=== PATIENT | female | born 1990 | race Two or more races ===

== ENCOUNTER 2023-05-16 11:47 | Outpatient (REF) | payer MEDICAID, SELFPAY ==
[2023-05-16 14:29] LABS: MANUAL DIFF FLAG NO
[2023-05-16 14:41] LABS: Basophils Absolute Auto 0.1 X10*3/uL (0.0-0.2); Basophils Percent Auto 0.9 % (0-2); Eosinophils Percent Auto 0.4 % (0-4); Hematocrit 39.8 % (37.0-47.0); Hemoglobin 13.5 g/dl (12.0-16.0); Imm Gran Abs Auto 0.01 X10*3/uL (0.00-0.03); Imm Gran Pct Auto 0.1 % (0.0-0.4); Lymphocytes Absolute Auto 2.1 X10*3/uL (1.2-4.9); Lymphocytes Percent Auto 31.7 % (20-40); Mean Corpuscular HGB Conc 33.9 g/dl (31.0-35.0); Mean Corpuscular Hemoglobin 31.7 pg (27.0-33.0); Mean Corpuscular Volume 93.4 fL (80.0-98.0); Mean Platelet Volume 10.5 fL (9.4-12.3); Monocytes Absolute Auto 0.6 X10*3/uL (0.1-1.2); Monocytes Percent Auto 8.8 % (2-11); Neutrophils Absolute Auto 3.9 x10*3/uL (2.0-8.3); Neutrophils Percent Auto 58.1 % (45-73); Platelet Count 392 X10*3/uL (160-400); Red Blood Count 4.26 X10*6/uL (4.20-5.50); Red Cell Distribution Width 11.9 % (11.0-16.0); White Blood Count 6.7 X10*3/uL (4.8-10.8)
[2023-05-16 15:36] LABS: Estimated Average Glucose 94 mg/dL; Hemoglobin A1c % 4.9 % (<6.0)
[2023-05-16 15:53] LABS: Alanine Aminotransferase 13 U/L (0-31); Albumin Level 4.4 g/dL (3.5-5.0); Alkaline Phosphatase 48 U/L (39-117); Anion Gap 12 (12-20); Aspartate Amino Transferase 16 U/L (5-31); Bilirubin Total 0.6 mg/dL (0.0-1.0); Blood Urea Nitrogen 9 mg/dL (9-16); Calcium 9.3 mg/dL (8.4-10.2); Carbon Dioxide 26 mmol/L (22-29); Chloride 107 mmol/L (96-108); Cholesterol 174 mg/dL (<200); Estimated Glomerular Filt Rate > 60; Glucose Fasting 83 mg/dL (60-99); HDL Cholesterol 49 mg/dL (>40); LDL Cholesterol Calculated 111 mg/dL (<100); Potassium 3.8 mmol/L (3.3-5.1); Sodium 141 mmol/L (135-145); TSH reflex Free T4 0.53 uIU/mL (0.32-4.0); Total Protein 7.5 g/dL (6.5-8.0); Triglycerides 74 mg/dL (<150)
== END 2023-05-16 11:48 | disposition home or self-care (01) ==
LOC: HO.CHCLDS 11:47
PROVIDERS: Visit Provider Internal Medicine
DX: Z00.00 Encounter for general adult medical examination without abnormal findings (principal)
CPT/HCPCS: 36415; 80053; 80061; 83036; 84443; 85025

== ENCOUNTER 2023-09-09 | Outpatient (REF) | payer MEDICAID, SELFPAY ==
[2023-09-15 20:09] LABS: HPV mRNA E6/E7 rflx Not Detected (Not Detected)
== END 2023-09-09 00:01 | disposition home or self-care (01) ==
LOC: HO.HHCLNP
PROVIDERS: Visit Provider Advanced Practice Midwife
DX: Z12.4 Encounter for screening for malignant neoplasm of cervix (principal)
CPT/HCPCS: 87624; 88142

== ENCOUNTER 2024-09-30 18:23 | Outpatient (REF) | payer MEDICAID, SELFPAY ==
--- OUTSIDE RECORDS SUMMARY | 2024-09-30 19:49 | XMS_ITS | Encounter Summary ---
Author Organization [employer] Address [address] [facility] 7 [place] [address] Care Team Providers Care Buyer Agent Name Role Phone Byron Rey MD Primary Care Prov ider Reason for Visit * Reason Onset Date Comments Med Change Request 02/27/2024 Encounter Details Date Type Department Care Team ([facility] st Contact Info) Description 02/27/2024 Telephone [facility] MEDICINE [address] [place] [address] Byron Rey MD [address] [place] [address] Med Change Request Social History Tobacco Use Types Packs/Day Years Used Date Smoking Tobacco: Never Smokeless Tobacco: Never Alcohol Use Standard Drinks/Week Comments Never 0 (1 standard drink = 0.6 oz pur e alcohol) Depression Answer Date Recorded Patient Health Questionnaire-9 Score 0 01/02/2023 Housing Stability Answer Date Recorded What is your housing situation today? I have yuri bonds 06/02/[address] you li ve. Do you have problems with any of the following? None of the above 06/02/2023 Food Insecurity Answer Date Recorded Within the past 12 months, y ou worried that your food would run out before you got money to buy more: Never True 06/02/2023 Within the past 12 months,th e food you bought just didn't last and you didn't have enough money to get more: Never True Transportation Answer Date Recorded In the past 12 months, has l ack of transportation kept you from medical appts, meetings, work or from getting things needed for daily living? No 06/02/2023 Utilities Answer Date Recorded In the past 12 months, has t he electric, gas, oil or water company threatened to shut off services in your home? No 06/02/2023 Depression Answer Date Recorded Patient Health Questionnaire-2 Score 0 01/02/2023 Comments No Sex and Gender Information Value Date Recorded Sex Assigned at Female 06/03/2022 10:32 AM EDT Legal Sex Female 10:32 AM EDT Gender Identity Female 06/03/2022 10:32 AM EDT Sexual Orientation Straight 06/03/2022 10 :32 AM EDT documented as of this encounter Miscellaneous Notes * Telephone Encounter - Anabel Varghese RN - 03/01/2024 9:38 AM EDT Telephone call returned to patient in regards to below message. Patient stating that medication hasnot helped with her pain. She states that she has only used motrin prior and this was the medication she started for her back pain. Patient stating she takes medication once a day when she feel pain as that is that PCP told her to do. Patient is wondering if there is a different medication or if the dosage could be higher so she can have pain relief. Advised patient will send message along to provider. Patient verbalized understanding and denied having any further questions or concerns at this time. * Telephone Encounter - Arcenio Padron - 02/27/2024 2:46 PM EDT Tc from patient requesting a change from the medication meloxicam (Mobic) 15 MG tablet states this medication has no effect and would like something else documented in this encounter Plan of Treatment Not on file documented as of this encounter Visit Diagnoses Not on filedocumented in this encounter Additional Health Concerns Assessment Noted Time PHQ-9 Depression Total Score: 0 01/03/20 23 3:16 PM EDT documented as of this encounter Care Teams Buyer Agent Relationship Specialty Start Date End Date Byron Rey MD [address] [place] [id number] PCP - General Internal Medicine 07/25/20 documented as of this encounter
--- OUTSIDE RECORDS SUMMARY | 2024-09-30 19:49 | XMS_ITS | Encounter Summary ---
Author Organization [employer] Address [address] [facility] 7 [place] [address] Care Team Providers Care Pole Peeler Name Role Phone Byron Rey MD Primary Care Prov ider Reason for Visit * Reason Onset Date Comments Appointment Request 07/04/2023 Encounter Details Date Type Department Care Team ([facility] st Contact Info) Description 07/04/2023 Telephone [facility] MEDICINE [address] [place] [address] Byron Rey MD [address] [place] [address] Appointment Request Social History Tobacco Use Types Packs/Day [...] encounter Miscellaneous Notes * Telephone Encounter - Stephie Denis RN - 07/04/2023 11:49 AM EST Returned call to pt regarding message below. NV scheduled for 07/14/23. Pt agrees with plan. * Telephone Encounter - Pat Andrade - 07/04/2023 11:31 AM EST Tc from pt requesting a Depo appt. documented in this encounter Plan of Treatment Not on file documented as of this encounter Visit Diagnoses Not on filedocumented in this encounter Additional Health Concerns Assessment Noted Time PHQ-9 Depression Total Score: 0 01/03/20 23 3:16 PM EDT documented as of this encounter Care Teams Pole Peeler Relationship Specialty Start Date End Date Byron Rey MD [address] [place] [id number] PCP - General Internal Medicine 07/25/20 documented as of this encounter
--- OUTSIDE RECORDS SUMMARY | 2024-09-30 19:49 | XMS_ITS | Clinical Summary ---
Author Organization [facility] it Address [address] [place] [address] Care Team Providers Care Nuts And Bolts Assembler Name Role Phone Unavailable Primary Care Provider Unavailabl e Social History Tobacco Use Types Packs/Day Years Used Date Smoking Tobacco: Never Assessed Comments Unknown Sex and Gender Information Value Date Recorded Sex Assigned at Not on file Legal Sex Female 4:29 AM EST Gender Identity Not on file Sexual Orientation Not on file Plan of Treatment Health Maintenance Due Date Last Done Comments DTaP,Tdap,and Td Vaccines (1 - Tdap) 2010 Hepatitis B Vaccines (1 of 3 - 19+ 3-dose series) 2010 Cervical Cancer Screening: P ap Smear 2012 Depression Screening 07/07/2022 HIV Screening 07/07/2022 Hepatitis C Screening 07/07/2022 Social Influencers of Health Screening 07/07/2022 COVID-19 Vaccine ( - 2023-2 5 season) 2024 Influenza Vaccine (#1) 2024 HIB Vaccines Aged Out No longer eligi ble based on patient's age to complete this topic HPV Vaccines Aged Out No longer eligi ble based on patient's age to complete this topic Hepatitis A Vaccines Aged Out No long er eligible based on patient's age to complete this topic IPV Vaccines Aged Out No longer eligi ble based on patient's age to complete this topic MMR Vaccines Aged Out No longer eligi ble based on patient's age to complete this topic Meningococcal ACWY Vaccine Aged Out N o longer eligible based on patient's age to complete this topic Meningococcal B Vacine Aged Out No lo nger eligible based on patient's age to complete this topic Pneumococcal Vaccine: Pediat rics (0 to 5 Years) and At-Risk Patients (6 to 64 Years) Aged Out No longer eligible b ased on patient's age to complete this topic RSV Immunization Patients Un los 20 months Aged Out No longer eligible b ased on patient's age to complete this topic Varicella Vaccines Aged Out No longer eligible based on patient's age to complete this topic
--- OUTSIDE RECORDS SUMMARY | 2024-09-30 19:49 | XMS_ITS | Encounter Summary ---
Author Organization [employer] Address [address] [facility] [address] 7[address] h Floor [address] Care Team Providers Care Chairman President And Chief Executive Officer Name Role Phone Byron Rey MD Primary Care Prov ider Encounter Details Date Type Department Care Team (Latest Contact Info) Description 09/30/2024 Travel Social History Tobacco Use Types Packs/Day Years [...] AM EDT documented as of this encounter Plan of Treatment Not on file documented as of this encounter Visit Diagnoses Not on filedocumented in this encounter Additional Health Concerns Assessment Noted Time PHQ-9 Depression Total Score: 0 01/03/20 23 3:16 PM EDT documented as of this encounter Care Teams Chairman President And Chief Executive Officer Relationship Specialty Start Date End Date Byron Rey MD [address] [place] [id number] PCP - General Internal Medicine 07/25/20 documented as of this encounter
--- OUTSIDE RECORDS SUMMARY | 2024-09-30 19:49 | XMS_ITS | Clinical Summary ---
Author Organization [employer] Address [address] [place] [address] 7t [place] [address] Care Team Providers Care Lcsw Name Role Phone Byron Rey MD Primary Care Prov ider Allergies Active Allergy Reactions Criticality Noted Date Comments Bacitracin-Polymyxin B Rash Low 04/12/2024 Diphenhydramine Anxiety,Palpitations Low 04/04/2020 Other reaction(s): Hives / Skin Rash Medications Blood Pressure kit 1 kit in the morning. 1 kit 08/07/2023 Active albuterol 108 (90 Base) MCG/ACT inhalerIndication s:Mild intermittent asthma with acute exacerbation Inhale 1 puff every 4 (four) hours if needed for wheezing. 18 g 11/24/2023 11/24/19 25 Active drospirenone-ethi nyl estradiol-levomef olate calcium (Beyaz) 3-0.02-0.451 MG Take 1 tablet by mouth Once per day. 28 tablet 11 02/23/2024 Active meloxicam (Mobic) 15 MG tablet TAKE 1 TABLET BY MOUTH EVERY DAY 30 tablet 1 05/20/2024 Active Active Problems Problem Noted Date Diagnosed Date Abnormal cervical Papanicolaou smear 04/12/2024 Overview (04/12/2024): po planned Elevated blood pressure reading 08/07/2023 Assessment & Plan (10/06/2023 2:41 PM EST): Blood pressure results have maintained stable, less than 140/90, reinforced low sodium diet and exercise as tolerated and keep bp log Assessment & Plan (08/07/2023 12:42 PM EST): Patient found on recent office visit with elevated blood pressure, she was asymptomatic, has family hx of hypertension, will provide bp kit, follow up in 1 month, target <140/90, encouraged low sodium diet and exercise as tolerated Mid back pain 04/24/2023 Assessment & Plan (03/24/2024 3:02 PM EDT): Pain not improving with oral meloxicam, she has tried home remedies, exercises, heaat/cold, told to call back ortho last seen on 06/2023, will prescribe prednisone for 5 days, continue with meloxicam Assessment & Plan (02/17/2024 2:52 PM EDT): Pain comes and goes, she saw back specialist, had a MRI but did not quilified for steroid injections, will prescribe meloxicam to be taken as needed, told to continue home pt exercises, call back if worsening Assessment & Plan (05/17/2023 12:27 PM EDT): Controlled with intermittent OTC meds, continue stretching and exercise as tolerated Assessment & Plan (04/24/2023 10:55 AM EDT): Chronic thoracic back pain that radiate to her chest, no recent trauma, no heavy lifting, she has tried PT and home remedies, that improves the pain slightly and for a short term, requesting ortho evaluation, will place referral Encounter for initial prescr iption of injectable contraceptive 04/24/2023 Assessment & Plan (02/17/2024 2:52 PM EDT): Patient prefers to try oral pill contraceptive, will place order Assessment & Plan (04/24/2023 10:59 AM EDT): Wants to restart depo injections, will send task to nursing to schedule appointment Migraine without aura and wi thout status migrainosus, not intractable 01/02/2023 Assessment & Plan (05/17/2023 12:27 PM EDT): Controlled with Nsaids as needed, reinforce lifestyle modifications Assessment & Plan (01/02/2023 4:09 PM EDT): Will order sumatriptan and naproxen, reviewed lifestyle modifications, call back if not improving Acne 09/20/2021 Breast tenderness 09/20/2021 Resolved Problems Problem Noted Date Diagnosed Date Resolved Date Encounter for care of first 04/12/2024 09/30/2024 Encounters Date Type Department Care Team Description 09/30/2024 1:00 PM EST Office Visit [facility] [address] [place] [address] Lea Tucker CNM Dysmenorrhea (Primary Dx); Vaginal discharge 09/30/2024 Travel 07/23/2024 Travel from Last 3 Months Immunizations Name Administration Dates Next Due DTaP 12/07/2008 Influenza injectable quadriv alent preservative free 05/16/2023,08/22/2020,05/06/2019 Influenza, IIV3, injectable 10/17/2014 MMR 07/11/1992 Tdap 05/16/2023,01/17/2015 Social History Tobacco Use Types Packs/Day Years Used Date Smoking Tobacco: Never Smokeless Tobacco: Never Tobacco Cessation:Counseling Given: Not Answered Alcohol Use Standard Drinks/Week Comments Never 0 [...] Orientation Straight 06/03/2022 10 :32 AM EDT Last Filed Vital Signs Vital Sign Reading Time Taken Comments Blood Pressure 119/81 09/30/2024 1:25 PM EST Pulse 70 09/30/2024 1:25 PM EST Temperature 37 ??C (98.6 ??F) 09/30/2024 1:25 PM EST Respiratory Rate 20 09/30/2024 1:25 PM EST Oxygen Saturation 98% 09/30/2024 1:25 PM EST Inhaled Oxygen Concentration - - Weight 64.1 kg (141 lb 6.4 oz) 09/30/2024 1:25 P M EST Height 154.9 cm (5' 1 ) 09/30/2024 1:25 PM EST Body Mass Index 26.72 09/30/2024 1:25 PM EST Plan of Treatment Health Maintenance Due Date Last Done Comments Alcohol/Substance Use Screening 2003 Hepatitis B Vaccines (1 of 3 - 19+ 3-dose series) 2010 Pneumococcal Vaccine: Pediatrics (0 to 5 Years) and At-Risk Patients (6 to 49) Years) (1 of 2 - PCV) 2010 Depression Screening 01/03/2024 01/02/2023, 01/03/20 23 SDOH Screening 01/03/2024 01/02/2023 COVID-19 Vaccine (2023- season) 2024 06/12/2021, 10/07/2020, 09/16/2020 Influenza Vaccine (#1) 2024 , 08/22/2020, 05/06/2019, Additional history exists Family Planning (PISQ) 09/30/2025 09/30/2024 Tobacco Screening 09/30/2025 09/30/2024 Cervical Cancer Screening 09/09/2028 HPV/Cotest 09/09/2028 09/09/2023 Pap Smear 09/09/2028 09/09/2023, 08/22/2020 DTaP/Tdap/Td Vaccines (4 - Td or Tdap) 05/16/2033 05/16/2023, 01/17/2015, 12/07/2008 Zoster Vaccines (1 of 2) 2041 RSV Patients and Patients Aged 60 years or older (1 - 1-dose 75+ series) 2066 HIV Screening Completed 05/28/2021, 05/05, 07/19/2020 Hepatitis C Screening Completed 05/28/2021 HIB Vaccines Aged Out No longer eligi [...] patient's age to complete this topic Meningococcal Vaccine Aged Out No kelly clovis eligible based on patient's age to complete this topic RSV under 20 months Aged Out No longe r eligible based on patient's age to complete this topic Rotavirus Vaccines Aged Out No longer eligible based on patient's age to complete this topic Procedures Procedure Name Priority Date/Time Associated Diagnosis Comments HPV MRNA E6/E7 REFLEX TO HPV 16, 18/45 Routine 09/09/2023 1:22 PM EST PAP SMEAR Routine 09/09/2023 1:22 PM EST Cervical cancer screening ZZZ HISTORICAL HEPATITIS C AB W/REFL TO HCV RNA, QN, PCR Routine 05/28/2021 10:03 AM EDT HIV 1/2 ANTIGEN/ANTIBODY, FOURTH GENERATION W/RFL Routine 05/28/2021 9:55 AM EDT from Last 3 Months or Most Recently Relevant to Health Maintenance Results * HPV mRNA E6/E7 w/Reflex to HPV Genotypes 16, 18/45 (09/09/2023 1:22 PM EST) HPV nRNA E6/E7 Not Detected Not Detected [facility] Comment:Methodology: Transcr iption-Mediated AmplificationThis assay detects E6/E7 viral messenger RNA (mRNA) from 14high-risk HPV types (16,18,31,33,35,39,45,51,52,56,58,59,66,68).Cervical sources are required for HPV testing.If a vaginal source from a patient who has had atotal hysterectomy with removal of cervix wassubmitted, please contact the testing laboratoryfor alternative testing options.For additional information, please refer tohttp://education.[employer].com/faq/MZR133o1(This link if provided for information/educational purposes only.)THIS TEST WAS PERFORMED AT:[facility] [place] [id number] BILLY MD HPV mRNA E6/E7 [facility] HPV 16 RNA [facility] HPV 18/45 RNA [facility] 09/09/2023 1:22 PM EST 09/10/2023 11:40 AM EST Lea Tucker [facility] CYTOLOGY ORDERABLES F inal Result [facility] [address] [place] [address] [phone] * Pap Smear (09/09/2023 1:22 PM EST) Swab Cervix uteri structure / Unknown 09/09/2023 1:22 PM EST 09/10/2023 11:40 AM EST Narrative [facility] - 09/23/2023 10:36 AM EST ----- ------- Name: Patrica Dallas ?Age/Sex: 33/F ? : 1990 Unit#: [id number] ?? Attend Dr: LEA TUCKER CNM ?Re09/09/23 ?Status: DEP REF ? Location: HO.HHCLNP ? Disch: ? ----- ------- SPEC : [id number] ? RECD: 09/10/23-1140 ? STATUS: ??SOUT ? REQ NUM: [id number] ? RAFFAELE: 09/09/23-1322 ? SUBM DR: LEA TUCKER CNM ? ENTERED: ??09/10/23-1232 ?SP TYPE: Pap Smr ?OTHR : ? ORDERED: ??Pap Smear ? Interpretation ?? Satisfactory for evaluation. ?? Negative for intraepithelial lesion or malignancy. ?HPV mRNA E6/E7: ?NOT DETECTED ? This assay detects E6/E7 viral messenger RNA (mRNA) from 14 high-risk HPV types (16, 18, ?? 31, 33, 35, 39, 45, 51, 52, 56, 58, 59, 66, 68) ?? HPV testing performed by [facility], [place], [place]. ??See reference laboratory ?? portion of the EMR for entire report. ?Clinical Information LMP: Unknown date Previous PAP test: Unknown date/findings ? Material Received ?? ThinPrep-Cervical ----- ------- Signed (signature on file) NAHID Marcos (ASCP) 09/23/23 1036 ? ----- ------- ? END OF REPORT ? us Lea LIMON LAB CYTOLOGY ORDERABLES F inal Result [facility] [address] [place] [address] [phone] * HEPATITIS C AB W/REFL TO HCV RNA, QN, PCR (05/28/2021 10:03 AM EDT) HEPATITIS C ANTIBODY NON-REACT JAYDA NON-REACT JAYDA [facility] INDEX 0.01 <1.00 [facility] Comment: ?? HCV antibody was non-reactive. There is no laboratory ?? evidence of HCV infection. ?? In most cases, no further action is required. However, if recent HCV exposure is suspected, a test for HCV RNA (test code 76194) is suggested. ?? For additional information please refer to http://education.[employer].com/faq/LOE84h2 (This link is being provided for informational/ educational purposes only.) ?? 05/28/2021 10:0 3 AM EDT us Anais Chavez MD HISTORICAL/NON ORDERABLE LABS Final Result Performing Organization Address [facility] de Phone Number [facility] [address] * HIV 1/2 ANTIGEN/ANTIBODY,FOURTH GENERATION W/RFL (05/28/2021 9:55 AM EDT) HIV-1/2 ANTIGEN AND ANTIBODIES, 4TH GENERATION W/ REFLEX TNP [facility] Comment: TEST NOT PERFORMED ?? Duplicate test. 05/28/2021 9:55 AM EDT us Anais Chavez MD LAB BLOOD ORDERABLES Final Re sult Performing Organization Address [facility] Co de Phone Number [facility] [address] from Last 3 Months or Most Recently Relevant to Health Maintenance Insurance [facility] C3 GENERIC OTHER C3 Care Teams Lcsw Relationship Specialty Start Date End Date BabcockByron Mcmahon MD [address] [place] [phone] PCP - General Internal Medicine 07/25/20
--- OUTSIDE RECORDS SUMMARY | 2024-09-30 19:49 | XMS_ITS | Encounter Summary ---
Author Organization [employer] Address [address] [facility] 7 [place] [address] Care Team Providers Care Steel Cutter Name Role Phone Byron Rey MD Primary Care Prov ider Reason for Visit * Reason Onset Date Comments triage 01/02/2023 Encounter Details Date Type Department Care Team (Late st Contact Info) Description 01/02/2023 Telephone [facility] MEDICINE [address] [place] [address] Byron Rey MD [address] [place] [address] triage Social History Tobacco Use Types Packs/Day Years Used Date Smoking Tobacco: Never Smokeless Tobacco: Never Alcohol Use Standard Drinks/Week Comments Never 0 (1 standard drink = 0.6 oz pur e alcohol) Depression Answer Date Recorded Patient Health Questionnaire-9 Score 0 01/02/2023 Depression Answer Date Recorded Patient Health Questionnaire-2 Score 0 01/02/2023 Comments No Sex and Gender Information Value Date Recorded Sex Assigned at Female 06/03/2022 10:32 AM EDT Legal Sex Female 10:32 AM EDT Gender Identity Female 06/03/2022 10:32 AM EDT Sexual Orientation Straight 06/03/2022 10 :32 AM EDT documented as of this encounter Miscellaneous Notes * Telephone Encounter - Kiesha Dumont RN - 01/02/2023 2:58 PM EDT Triage call Pt is requesting refill of medication prescribed previously for migraine headache. Pt reports that the migraine headaches have started again and excedrin is not helping. Pt believes the name of medication previously prescribed was topamax 25mg. Sumac Tanner doesn't see anything on chart with this name. Tele visit with PCP today @ 315pm . Insurance is verified as active prior to booking. Protocol Used: Medication Refill and Renewal Call (Adult) Protocol-Based Disposition: Discuss with PCP and Callback by Nurse Today Positive Triage Question: * Prescription refill request for NON-ESSENTIAL medicine (i.e., no harm to patient if med not taken) and triager unable to refill per department policy * All higher-acuity triage questions were negative Care Advice Discussed: * Reasons To Call Back - You have more questions * Telephone Encounter - Kateryna Marquez - 01/02/2023 2:34 PM EDT Symptom: Headache Outcome: Schedule an urgent appointment (within 4 hours) or talk to a nurse or provider soon Reason: Getting worse The caller accepted this outcome documented in this encounter Plan of Treatment Not on file documented as of this encounter Visit Diagnoses Not on filedocumented in this encounter Additional Health Concerns Assessment Noted Time PHQ-9 Depression Total Score: 0 01/03/20 23 3:16 PM EDT documented as of this encounter Care Teams Steel Cutter Relationship Specialty Start Date End Date Byron Rey MD [address] [place] [id number] PCP - General Internal Medicine 07/25/20 documented as of this encounter
--- OUTSIDE RECORDS SUMMARY | 2024-09-30 19:49 | XMS_ITS | Encounter Summary ---
Author Organization [employer] Address [address] [place] [address] [address] [place] [address] Care Team Providers Care Glue Size Machine Operator Name Role Phone Byron Rey MD Primary Care Prov ider Reason for Referral * Imaging (Urgent) - Authorized Specialty Diagnoses / Procedures Referred By Contac t Referred To Contact Radiology Diagnoses Dysmenorrhea Procedures US Pelvis Transvaginal Winnie Alba CNM [address] [place] [address] Phone: tel: fax: [facility] Referral ID Status Reason Start Date Expiration Date V isits Requested Visits Authorized [id number] Authorized 09/30/2024 09/30/2025 1 1 * Imaging (Urgent) - Authorized Specialty Diagnoses / Procedures Referred By Contac t Referred To Contact Radiology Diagnoses Dysmenorrhea Procedures Us Pelvis complete Winnie Alba CNM [address] [place] [address] Phone: tel: fax: [facility] Referral ID Status Reason Start Date Expiration Date V isits Requested Visits Authorized [id number] Authorized 09/30/2024 09/30/2025 1 1 Reason for Visit * Reason Comments Follow-up Pelvic Encounter Details Date Type Department Care Team (Late st Contact Info) Description 09/30/2024 1:00 PM EST Office Visit [facility] [address] [place] [address] Winnie Alba, CNM [address] [place] [address] Dysmenorrhea (Primary Dx); Vaginal discharge Social History Tobacco Use Types Packs/Day Years [...] AM EDT documented as of this encounter Last Filed Vital Signs Vital Sign Reading [...] Mass Index 26.72 09/30/2024 1:25 PM EST documented in this encounter Progress Notes * Winnie Alba, JENNIFER - 09/30/2024 1:00 PM EST Subjective Patient ID: Patrica Lynch is a 34 y.o. female who presents for [facility] visit Last visit with me 09/2023. Pap NIL/HPV neg 09/2023. Pap NIL 08/2020. Switched from Sara to Slynd due to elevated BP 10/2021. Switched to Depo 04/2023. Resumed combined oral contraceptive pill 02/2024. Last BP 161/104 in 04/2024. Stopped oral contraceptive pill after that. Not sexually active since 03/2024. Declines STI testing today. Treated for Chlamydia 08/2020, retest negative. GC/Ch neg 08/2022. Monthly menses x 5 days. Very heavy x 2 days, notes cramping with bleeding which was debilitating in high school. Cramping manageable with Midol or NSAIDS, not missing work/social events with pain. Not planning in the next year. Notes some increased vaginal discharge or vulvar moisture. No other vaginal or urinary symptoms. Review of Systems Genitourinary: Positive for menstrual problem. Negative for dyspareunia, dysuria, frequency, genital sores, hematuria, pelvic pain, urgency, vaginal bleeding, vaginal discharge and vaginal pain. No abnormal pap, no abnormal bleeding, no breast pain, no breast mass, no nipple discharge Objective BP 119/81 (BP Location: Left arm, Patient Position: Sitting, BP Cuff Size: Adult) Pulse 70 Temp98.6 ??F (37 ??C) (Oral) Resp 20 Ht 5' 1 (1.549 m) Wt 141 lb 6.4 oz (64.1 kg) SpO2 98% BMI 26.72 kg/m?? Physical Exam Constitutional: Appearance: Normal appearance. Chest: Breasts: Right: Normal. No swelling, bleeding, inverted nipple, mass, nipple discharge, skin change or tenderness. Left: Normal. No swelling, bleeding, inverted nipple, mass, nipple discharge, skin change or tenderness. Comments: Bilateral piercings, well healed Genitourinary: General: Normal vulva. Labia: Right: No rash, tenderness, lesion or injury. Left: No rash, tenderness, lesion or injury. Vagina: Normal. No signs of injury and foreign body. No vaginal discharge, erythema, tenderness, bleeding or lesions. Cervix: No cervical motion tenderness, discharge, friability, lesion, erythema, cervical bleeding or eversion. Uterus: Normal. Not enlarged and not tender. Adnexa: Right adnexa normal and left adnexa normal. Right: No mass, tenderness or fullness. Left: No mass, tenderness or fullness. Comments: Clitoral gonzalez piercing well healed Lymphadenopathy: Upper Body: Right upper body: No supraclavicular or axillary adenopathy. Left upper body: No supraclavicular or axillary adenopathy. Neurological: Mental Status: She is alert. Psychiatric: Mood and Affect: Mood normal. Behavior: Behavior normal. Assessment/Plan Diagnoses and all orders for this visit: Dysmenorrhea - Us Pelvis complete; Future - US Pelvis Transvaginal; Future Let's get ultrasound to rule out structural issues. Will contact with results. Can try progestin only pill or IUD if interested. Doesn't want method with weight gain. She feels periods are manageablefor now, but will let me know if this changes. Vaginal discharge - Bacterial Vaginosis Panel Will send bacterial vaginosis swab and treat positive results. Pap/HPV 09/2028. STI testing with new partners. documented in this encounter Plan of Treatment Scheduled Orders Name Type Priority Associated Diagnoses Orde r Schedule Bacterial Vaginosis Panel Microbiology Routine Vaginal discharge Ordered: 09/30/2024 Us Pelvis complete Imaging Urgent Dysmenorrhea Expected: 09/30/2024, Expires: 09/30/2025 US Pelvis Transvaginal Imaging Urgent Dysmenorrhea Expected: 09/30/2024, Expires: 09/30/2025 documented as of this encounter Visit Diagnoses Diagnosis Dysmenorrhea- Primary Vaginal discharge Leukorrhea, not specified as infective documented in this encounter Additional Health Concerns Assessment Noted Time PHQ-9 Depression Total Score: 0 01/03/20 23 3:16 PM EDT documented as of this encounter Care Teams Glue Size Machine Operator Relationship Specialty Start Date End Date Byron Rey MD [address] [place] [id number] PCP - General Internal Medicine 07/25/20 documented as of this encounter
[2024-10-01 10:34] LABS: Bacterial Vaginosis PCR NEGATIVE (Negative); Candida Group PCR DETECTED (Not Detect); Candida glab krusei PCR NOT DETECTED (Not Detect); Trichomonas vaginalis PCR NOT DETECTED (Not Detect)
== END 2024-09-30 18:24 | disposition home or self-care (01) ==
LOC: HO.HHCLNP 18:23
PROVIDERS: Visit Provider Advanced Practice Midwife
DX: N89.8 Other specified noninflammatory disorders of vagina (principal)
CPT/HCPCS: 81515

== ENCOUNTER 2025-01-13 17:42 | Outpatient (REF) | payer MEDICAID, SELFPAY ==
--- OUTSIDE RECORDS SUMMARY | 2025-01-13 18:25 | XMS_ITS | Clinical Summary ---
Author Organization [facility] it Address [address] [place] [address] Care Team Providers Care Java Architect Name Role Phone Unavailable Primary Care Provider [...] - 2023-2 5 season) 2024 Influenza Vaccine (Season Ended) 2025 HIB Vaccines Aged Out No longer eligi [...] age to complete this topic Meningococcal B Vaccine Aged Out No l onger eligible based on patient's age to complete [...]
[2025-01-13 18:50] LABS: Bacterial Vaginosis PCR POSITIVE (Negative); Candida Group PCR DETECTED (Not Detect); Candida glab krusei PCR NOT DETECTED (Not Detect); Trichomonas vaginalis PCR NOT DETECTED (Not Detect)
[2025-01-13 19:18] LABS: CT PCR NOT DETECTED (Not Detect.); NG PCR NOT DETECTED (Not Detect.)
== END 2025-01-13 17:43 | disposition home or self-care (01) ==
LOC: HO.HHCLNP 17:42
PROVIDERS: Visit Provider Internal Medicine
DX: N89.8 Other specified noninflammatory disorders of vagina (principal)
CPT/HCPCS: 81515; 87491; 87591

== ENCOUNTER 2025-02-10 10:15 | Outpatient (REF) | payer MEDICAID, SELFPAY ==
--- OUTSIDE RECORDS SUMMARY | 2025-02-10 10:58 | XMS_ITS | Clinical Summary ---
Author Organization [facility] it Address [address] [place] [address] Care Team Providers Care Bulk Gas Specialist Name Role Phone Unavailable Primary Care Provider [...] 2023-2 5 season) 2024 Influenza Vaccine (#1) 2025 HIB Vaccines Aged Out No longer [...] 5 Years) and At-Risk Patients (6 to 49 Years) Aged Out No longer eligible b ased on patient's age to complete this topic RSV Immunization Patients Un los 20 months Aged Out No longer eligible b ased on patient's age to complete this topic Varicella Vaccines Aged Out No longer eligible based on patient's age to complete this topic
--- OUTSIDE RECORDS SUMMARY | 2025-02-10 10:58 | XMS_ITS | Encounter Summary ---
Author Organization [employer] Address [address] [address] Care Team Providers Care Odd Job Worker Name Role Phone Byron Rey MD Primary Care Prov ider Reason for Visit * Reason Onset Date Comments Med Change Request 02/27/2024 Encounter Details Date Type Department Care Team ([facility] st Contact Info) Description 02/27/2024 Telephone [facility] [address] [place] [address] Byron Rey MD [address] [place] [address] Med Change Request Social History Tobacco Use [...] documented in this encounter Plan of Treatment Upcoming Encounters Date Type Department Care Team ([facility] st Contact Info) Description 02/15/2025 9:00 AM EDT Procedure Visit [facility] [address] [place] [address] Anais Chavez MD [address] [place] [address] 03/15/2025 9:30 AM EDT Telemedicine [facility] [address] [place] [address] Byron Rey MD [address] [place] [address] documented as of this encounter Visit Diagnoses Not on filedocumented in this encounter Additional Health Concerns Assessment Noted Time PHQ-9 Depression Total Score: 0 01/03/20 23 3:16 PM EDT documented as of this encounter Care Teams Odd Job Worker Relationship Specialty Start Date End Date Byron Rey MD [address] [place] [address] PCP - General Internal Medicine 07/25/20 documented as of this encounter
[2025-02-10 15:53] LABS: MANUAL DIFF FLAG NO
[2025-02-10 16:24] LABS: Alanine Aminotransferase 14 U/L (0-31); Albumin Level 4.6 g/dL (3.5-5.0); Alkaline Phosphatase 48 U/L (39-117); Anion Gap 11 (12-20); Aspartate Amino Transferase 25 U/L (5-31); Blood Urea Nitrogen 11 mg/dL (9-16); Calcium 9.2 mg/dL (8.4-10.2); Carbon Dioxide 25 mmol/L (22-29); Chloride 104 mmol/L (96-108); Cholesterol 168 mg/dL (<200); Estimated Glomerular Filt Rate > 60; HDL Cholesterol 48 mg/dL (>40); Potassium 3.2 mmol/L (3.3-5.1); Sodium 137 mmol/L (135-145); Total Protein 7.2 g/dL (6.5-8.0); Triglycerides 73 mg/dL (<150)
[2025-02-10 16:27] LABS: Hematocrit 35.4 % (37.0-47.0); Hemoglobin 11.9 g/dl (12.0-16.0); Imm Gran Abs Auto 0.08 X10*3/uL (0.00-0.03); Imm Gran Pct Auto 0.8 % (0.0-0.4); Lymphocytes Absolute Auto 2.3 X10*3/uL (1.2-4.9); Mean Corpuscular HGB Conc 33.6 g/dl (31.0-35.0); Mean Corpuscular Hemoglobin 31.2 pg (27.0-33.0); Mean Corpuscular Volume 92.9 fL (80.0-98.0); NRBC Abs Auto 0.000 X10*3/uL (0.0-0.012); NRBC Pct Auto 0.0 /100WBC (0.0-0.2); Platelet Count 349 X10*3/uL (160-400); Red Blood Count 3.81 X10*6/uL (4.20-5.50); White Blood Count 10.5 X10*3/uL (4.8-10.8)
[2025-02-10 16:55] LABS: Hemoglobin A1C 119.8775 umol/L; Total Hemoglobin (HGBA1C) 3955.0613 umol/L
[2025-02-13 15:38] LABS: TS Negative Control Passed; TS Panel A 0; TS Panel B 0; TS Positive Control Passed; TSpotTB Negative (Negative)
== END 2025-02-10 10:16 | disposition home or self-care (01) ==
LOC: HO.CHCLDS 10:15
PROVIDERS: Visit Provider Internal Medicine
DX: Z11.1 Encounter for screening for respiratory tuberculosis (principal); N89.8 Other specified noninflammatory disorders of vagina; R03.0 Elevated blood-pressure reading, without diagnosis of hypertension
CPT/HCPCS: 36415; 80053; 80061; 83036; 84443; 84702; 85025; 86481